=== PATIENT | female | born 1950 | race Caucasian/White ===

== ENCOUNTER 2024-08-26 11:34 | Outpatient (REF) | payer MEDICARE, SELFPAY ==
[2024-08-26 13:20] LABS: Hematocrit 43.6 % (37.0-47.0); Mean Corpuscular HGB Conc 34.4 g/dl (31.0-35.0); Mean Corpuscular Hemoglobin 29.5 pg (27.0-33.0); Mean Corpuscular Volume 85.8 fL (80.0-98.0); Mean Platelet Volume 8.8 fL (9.4-12.3); Platelet Count 258 X10*3/uL (160-400); Red Blood Count 5.08 X10*6/uL (4.20-5.50); Red Cell Distribution Width 12.8 % (11.0-16.0); White Blood Count 5.9 X10*3/uL (4.8-10.8)
[2024-08-26 14:04] LABS: Alanine Aminotransferase 16 U/L (0-31); Albumin Level 3.8 g/dL (3.5-5.0); Alkaline Phosphatase 75 U/L (39-117); Aspartate Amino Transferase 17 U/L (5-31); Bilirubin Direct 0.1 mg/dL (0.0-0.5); Bilirubin Total 0.3 mg/dL (0.0-1.0); Lipase 23 U/L (8-78); SLIDE REVIEW MANUAL DIFF; Total Protein 7.7 g/dL (6.5-8.0)
[2024-08-26 14:24] LABS: Atypical Lymph Absolute Manual 0.5 x10*3/uL; Atypical Lymphs Percent Manual 8 % (0-6); Band Neutrophils Percent 1 % (3-5); Basophils Abs Manual 0.1 X10*3/uL (0.0-0.2); Basophils Percent Manual 1 % (0-2); Eosinophils Absolute Manual 0.1 X10*3/uL (0.0-0.4); Eosinophils Percent Manual 2 % (0-4); Lymphocytes Absolute Manual 2.2 X10*3/uL (1.2-4.9); Lymphocytes Percent Manual 37 % (20-40); Monocytes Absolute Manual 0.5 X10*3/uL (0.1-1.2); Monocytes Percent Manual 8 % (2-11); Neutrophils Absolute Manual 2.6 X10*3/uL (2.0-8.3); Neutrophils Percent Manual 43 % (45-73)
[2024-08-26 14:26] LABS: Platelet Estimate NORMAL (NORMAL); Platelet Morphology Comment NORMAL; RBC Morphology NORMAL; TSH reflex Free T4 0.59 uIU/mL (0.32-4.0)
== END 2024-08-26 11:35 | disposition home or self-care (01) ==
LOC: HO.10HDL 11:34
PROVIDERS: Visit Provider Internal Medicine Gastroenterology
DX: R19.7 Diarrhea, unspecified (principal)
CPT/HCPCS: 36415; 80076; 83690; 84443; 85007; 85025; 85027

== ENCOUNTER 2024-09-08 10:53 | Day surgery (SDC) | payer MEDICARE, OTHER, SELFPAY ==
[2024-08-31 11:00] VITALS: BMI 21.9
--- NOTE | 2024-09-07 09:39 | P.CONAN_ITS ---
Documented by User: Sofi Jeter NP 09/07/24 09:40 HPI - Anesthesia Eval Consult details Narrative: 73yo F for Colonoscopy [facility] Past Medical History Medical History Hx of fracture of ankle IgA deficiency Hypothyroidism Hyperlipidemia Asthma Hypertension Surgical History Surgical History History of tooth extraction Hx of tonsillectomy Hx of colonoscopy Social History Social History Do you presently have visiting nurse or other home services: No Patient Tobacco Use Status: Never used Tobacco Use of substances other than those prescribed or required for medical reasons: No Have you been hit, kicked, punched, or otherwise hurt by someone within the past year? If so, by whom?: No Are you DNR?: No Advance Directives: No Advance Directives Information Provided: Yes Recently lost weight without trying: No Meds Allergies Allergy/AdvReac Type Severity Reaction Status Date / Time aspirin Allergy Unknown Verified 09/07/24 08:59 clarithromycin [From Biaxin] Allergy Unknown Verified 09/07/24 08:59 Iodinated Contrast Media Allergy Unknown Verified 09/07/24 08:59 [Contrast Dye] Home Medications ?Medication ?Instructions ?Recorded ?Confirmed ?Last Taken ?Type Collagen 1500 Plus C 1,500 mg 09/07/24 Unknown History Vitamin D3 25 mcg PO DAILY 09/07/24 09/07/24 Unknown History albuterol sulfate 108 mcg inhalation Q4H PRN sob 09/07/24 09/07/24 Unknown History amlodipine 5 mg tablet 5 mg PO DAILY 09/07/24 09/07/24 Unknown History biotin 5,000 mcg PO DAILY 09/07/24 09/07/24 Unknown History magnesium glycinate 100 mg PO DIRECTED 09/07/24 09/07/24 Unknown History montelukast 10 mg tablet 10 mg PO QPM 09/07/24 09/07/24 Unknown History Exam Height,Weight and Vital Signs: Height 5 ft 7 in Weight 63.503 kg Assessment and Plan Assessment Anesthesia Assessment: Chart Reviewed Documented by User: Corina Gatica MD 09/08/24 12:44 PMFSH Past Medical History Medical History Hx of fracture of ankle IgA deficiency Hypothyroidism Hyperlipidemia Asthma Hypertension Family History Family history of problems with anesthesia: No Surgical History Surgical History History of tooth extraction Hx of tonsillectomy Hx of colonoscopy History of Problems with Anesthesia: No Social History Social History Do you presently have visiting nurse or other home services: No Patient Tobacco Use Status: Never used Tobacco Use of substances other than those prescribed or required for medical reasons: No Have you been hit, kicked, punched, or otherwise hurt by someone within the past year? If so, by whom?: No Are you DNR?: No Advance Directives: No Advance Directives Information Provided: Yes Recently lost weight without trying: No Meds Allergies Allergy/AdvReac Type Severity Reaction Status Date / Time aspirin Allergy Unknown Verified 09/07/24 08:59 clarithromycin [From Biaxin] Allergy Unknown Verified 09/07/24 08:59 Iodinated Contrast Media Allergy Unknown Verified 09/07/24 08:59 [Contrast Dye] Home Medications ?Medication ?Instructions ?Recorded ?Confirmed ?Last Taken ?Type Collagen 1500 Plus C 1,500 mg 09/07/24 Unknown History Vitamin D3 25 mcg PO DAILY 09/07/24 09/07/24 Unknown History albuterol sulfate 108 mcg inhalation Q4H PRN sob 09/07/24 09/07/24 Unknown History amlodipine 5 mg tablet 5 mg PO DAILY 09/07/24 09/07/24 Unknown History biotin 5,000 mcg PO DAILY 09/07/24 09/07/24 Unknown History magnesium glycinate 100 mg PO DIRECTED 09/07/24 09/07/24 Unknown History montelukast 10 mg tablet 10 mg PO QPM 09/07/24 09/07/24 Unknown History Exam Airway Mallampati Class: II TM Dist: >3cm Neck ROM: Full Heart: rrr Lungs: cta Assessment and Plan Assessment Anesthesia Assessment: Anesthesia Plan Discussed Final Anesthetic Review Family History of Problems with Anesthesia: No History of Problems with Anesthesia: No NPO: Yes ASA Class: III Final Preanesthetic Review: No Changes in Pt Med Stat, Meds/Allgs Chart R ileana, Consent Obtained/Reviewed and Anes Risks/Benef Reviewed Patient Risk: Intermediate Procedure Risk: Low Anesthetic Plan Anesthetic Plan: MAC: Disposition: Standard PACU
[2024-09-08 11:21] VITALS: BP 123/81; PULSE 90; RESP 16; TEMP 36.3; O2SAT 99; BMI 21.9
[2024-09-08] MEDS: Lactated Ringers 1,000 ML 100 ML IVCONT (11:32)
--- NOTE | 2024-09-08 12:26 | MHC.SHP ---
Pre-Procedural Eval Section A - 24 Hr Update-Section A only Date of Service: 09/08/24 The patient is an INPATIENT: No Changes since office visit: No Cold of Flu in the past 2 weeks, No New Medical Problems, No Changes in Medication and No Patient answered all questions The patient has been examined within 24 hours of the surgical procedure. The History & Physical has been completed within 30 days and I have reviewed it.: Yes Section B - Complete if H&P > 30 days Chief Complaint: Diarrhea, unspecified Allergies: Allergies Allergy/AdvReac Type Severity Reaction Status Date / Time aspirin Allergy Unknown Verified 09/07/24 08:59 clarithromycin [From Biaxin] Allergy Unknown Verified 09/07/24 08:59 Iodinated Contrast Media Allergy Unknown Verified 09/07/24 08:59 [Contrast Dye] Plan I have reviewed the history and physical and performed a pertinent physical examination on my patient. No changes have occurred unless specified. Time Spent With Patient Time: Total time managing care of this patient today ____ minutes.
[2024-09-08 13:01] VITALS: BP 100/57; PULSE 78; RESP 16; TEMP 36.1; O2SAT 96
[2024-09-08 13:16] VITALS: BP 103/56; PULSE 81; RESP 16; TEMP 36.1; O2SAT 96
[2024-09-08 13:31] VITALS: BP 111/58; PULSE 71; RESP 16; TEMP 36.1; O2SAT 96
--- NOTE | 2024-09-08 13:34 | OP_ITS ---
DATE OF SERVICE: 09/08/2024 SURGEON: Terrence Colon MD INDICATIONS: Diarrhea. PREOPERATIVE DIAGNOSIS: POSTOPERATIVE DIAGNOSIS: PROCEDURE PERFORMED: Colonoscopy to the terminal ileum with biopsy. ESTIMATED BLOOD LOSS: COMPLICATIONS: ANESTHESIA: Monitored anesthesia care. ASSISTANTS: SPECIMENS: DESCRIPTION OF PROCEDURE: A history and physical was performed. The risks and benefits of the procedure were explained to the patient, and informed consent was obtained. The patient was placed in the left lateral decubitus position. A digital rectal exam was performed and was found to be normal. The Olympus pediatric video colonoscope was introduced into the rectum and advanced to the cecum. The cecum was identified by transillumination, palpation, and identification of ileocecal valve. Examination was performed. The scope was removed. She tolerated the procedure well and was returned to the recovery area in stable condition. FINDINGS: The terminal ileum was examined and appeared normal. The visualized colonic mucosa was normal. The quality of the prep was good. No polyps were identified. Random sigmoid biopsies were obtained. Retroflexed examination showed small internal hemorrhoids. There was mild sigmoid diverticulosis. IMPRESSION: Normal colonoscopy. RECOMMENDATION: 1. Follow up the biopsy results. 2. Repeat colonoscopy is recommended in 10 years for average-risk individuals. MD SOWMYA Fisher/ARTIE / [id number]
== END 2024-09-08 14:02 | disposition home or self-care (01) ==
PROVIDERS: PCP Internal Medicine; Visit Provider Internal Medicine Gastroenterology
PROC: 0DJD8ZZ Inspection of Lower Intestinal Tract, Via Natural or Artificial Opening Endoscopic (ICD-10-PCS; CPT 45378; principal; 2024-09-08 12:30)
DX: R19.7 Diarrhea, unspecified (principal); Z86.0101 Personal history of adenomatous and serrated colon polyps; K57.30 Diverticulosis of large intestine without perforation or abscess without bleeding; K64.8 Other hemorrhoids; I10 Essential (primary) hypertension; D80.2 Selective deficiency of immunoglobulin A [IgA]; J45.909 Unspecified asthma, uncomplicated; E78.5 Hyperlipidemia, unspecified; E03.9 Hypothyroidism, unspecified; Z79.899 Other long term (current) drug therapy; Z88.6 Allergy status to analgesic agent; Z91.041 Radiographic dye allergy status
CPT/HCPCS: 45380; 88305; J2003; J2704